=== PATIENT | male | born 1975 | race Two or more races ===

== ENCOUNTER 2016-09-20 20:01 | Observation (INO) | payer SELFPAY ==
[~2016-09-20] VITALS: Ht 175.3 cm; Wt 71.1 kg
[~2016-09-20 20:01] MED LIST: LITH8SOL PO; ZOLP-413 PO
[2016-09-20 20:35] LABS: ASPARTATE AMINO TRANSFERASE 21 U/L (15-37); BLOOD UREA NITROGEN 16 mg/dL (7-18)
[2016-09-20 20:38] LABS: ACETAMINOPHEN < 2 mcg/mL (10-30)
[2016-09-20 20:56] LABS: DAU SCREEN DISCLAIMER
[2016-09-20] MEDS ORDERED: OLANZAPINE 5 MG TABLET PO SCH (22:30)
[2016-09-20] MEDS ORDERED: HALOPERIDOL 5 MG TABLET PO PRN (23:00)
[2016-09-20] MEDS ORDERED: ZIPRASIDONE 20 MG INJ IM PRN (23:00)
[2016-09-20] MEDS ORDERED: ACETAMINOPHEN 325 MG TABLET PO PRN (23:00)
[2016-09-20] MEDS ORDERED: DOCUSATE 100 MG CAPSULE PO PRN (23:00)
[2016-09-20] MEDS ORDERED: DIPHENHYDRAMINE 50 MG CAPSULE PO PRN (23:00)
[2016-09-20] MEDS ORDERED: ONDANSETRON ODT 4 MG PO PRN (23:00)
[2016-09-21 15:38] VITALS: BP 128/86
[2016-09-21 20:05] VITALS: BP 116/54
[2016-09-22 08:00] VITALS: BP 106/74
== END 2016-09-22 15:50 ==
LOC: ED 22:00 → EDIP 22:15 → SUATTDRO 22:33 → 3E 09-21 14:33
PROVIDERS: ADMIT Family Medicine; ATTEND Family Medicine
DX: R45.851 Suicidal ideations (principal); F31.9 Bipolar disorder, unspecified; Z91.14 Patient's other noncompliance with medication regimen
CPT/HCPCS: 36415; 80053; 80307; 80329; 81003; 85025; 99285; G0378; G0480